=== PATIENT | female | born 1985 ===

== ENCOUNTER 2020-12-15 15:58 | Inpatient (IN) | payer OTHER ==
[~2020-12-15] VITALS: Ht 175.3 cm; Wt 97.5 kg
[2020-12-16] MEDS ORDERED: CODE1TAB37 PO (14:26)
== END 2020-12-16 17:11 | disposition home or self-care (01) | DRG 819 ==
LOC: ER 15:58 → OB/GYN 20:50 → SEC-K 20:50 → O/R 12-16 00:20 → OB/GYN 12-16 01:15
PROVIDERS: ADMIT Obstetrics & Gynecology; ATTEND Obstetrics & Gynecology
PROC: 0UB54ZZ Excision of Right Fallopian Tube, Percutaneous Endoscopic Approach (ICD-10-PCS; 2020-12-15)
PROC: 10T24ZZ Resection of Products of Conception, Ectopic, Percutaneous Endoscopic Approach (ICD-10-PCS; principal; 2020-12-15 20:00)
DX: O00.80 Other ectopic pregnancy without intrauterine pregnancy (principal); Z20.822 Contact with and (suspected) exposure to COVID-19